=== PATIENT | female | born 1960 ===

== ENCOUNTER 2021-02-09 09:42 | Emergency (ER) | payer MEDICARE ==
[~2021-02-09] VITALS: Ht 177.8 cm; Wt 123.6 kg
[2021-02-09 10:57] LABS: BASOPHILS 0.3 % (0-2); EOSINOPHILS 1.5 % (0-7); HEMATOCRIT 44.5 % (36.0-48.0); HEMOGLOBIN 15.3 g/dL (12-16); LYMPHOCYTES 5.6 % (15-50); MCH 29.6 pg (26.0-34.0); MCHC 34.4 g/dL (31.0-37.0); MCV 86.1 fL (80.0-100.0); MEAN PLATELET VOLUME 8.6 fL (7.4-10.4); MONOCYTES 6.9 % (2-11); NEUTROPHILS 85.7 % (40-80); PLATELET COUNT 316 10x3/uL (130-400); RBC 5.17 10x6/uL (4.00-5.40); RDW 14.2 % (11.5-14.5); WBC 15.4 10x3/uL (4.8-10.8)
[2021-02-09 11:40] LABS: CALC OSMOLALITY 278 mosm/kg (275-300); CALCIUM 9.6 mg/dL (8.5-10.1); CHLORIDE - SERUM 104 mmol/L (98-107); CREATININE - SERUM 1.1 mg/dL (0.6-1.3); GLUCOSE 141 mg/dL (74-106); POTASSIUM - SERUM 3.8 mmol/L (3.5-5.1); SODIUM 138 mmol/L (136-145); UREA NITROGEN 15 mg/dL (7-18); eGFR NON AFRICAN AMERICAN 54 mL/min (90-120)
[2021-02-09 11:57] LABS: ALBUMIN 3.8 g/dL (3.4-5.0); ALKALINE PHOSPHATASE 110 U/L (30-120); ALT (SGPT) 23 U/L (10-68); BILIRUBIN - TOTAL 0.52 mg/dL (0.2-1.3); CKMB 0.6 U/L (0.0-3.6); CREATINE KINASE 33 UL (21-215); PROTEIN - SERUM 7.2 g/dL (6.4-8.2); THYROID STIMULATING HORMONE 0.32 uIU/mL (0.36-3.74); TROPONIN-I < 0.017 ng/mL (0.000-0.060)
[2021-02-09 12:31] LABS: UDS - AMPHET NEGATIVE QUAL (NEGATIVE); UDS - BARB NEGATIVE QUAL (NEGATIVE); UDS - BENZO NEGATIVE QUAL (NEGATIVE); UDS - COCAINE NEGATIVE QUAL (NEGATIVE); UDS - OPIATE NEGATIVE QUAL (NEGATIVE); UDS - PCP NEGATIVE QUAL (NEGATIVE); UDS - THC NEGATIVE QUAL (NEGATIVE)
[2021-02-09 12:44] LABS: BILIRUBIN NEGATIVE (NEGATIVE); KETONE NEGATIVE mg/dL (< 1+); NITRITE NEGATIVE (NEGATIVE); RED CELL CAST 1 LPF (0-1); SQUAMOUS EPITHELIAL 1 HPF (0-4); UROBILINOGEN NORMAL mg/dL (< 2); WHITE CELLS - URINE 3 HPF (0-4)
[2021-02-09 13:01] LABS: BACTERIA FEW HPF (NONE SEEN)
[2021-02-09] MEDS ORDERED: ZOFRAN ODT4 MG/UDTAB PO (13:31)
[2021-02-09] MEDS ORDERED: LOMOTIL 2.5-0.1 EAC1 PO (13:31)
== END 2021-02-09 14:20 | disposition home or self-care (01) ==
LOC: D.ER 09:42
PROVIDERS: Family Medicine
DX: A08.4 Viral intestinal infection, unspecified (principal)